=== PATIENT | female | born 1970 | race African-American/Black ===

== ENCOUNTER 2016-11-27 11:26 | Emergency (ER) | payer MEDICAID ==
[~2016-11-27] VITALS: Ht 167.6 cm; Wt 85.7 kg
[~2016-11-27 11:26] MED LIST: KEFLEX500 MG ORAL; OMEPRAZOLE20 M2 ORAL; ONDANSETRON ODT4 MG ORAL; RANITIDINE HCL150 MG ORAL; ZOFRAN ODT4 MG ORAL
[2016-11-27] MEDS ORDERED: Lidocaine 1% MPF 10mg/ml 5ml INJ ONE (12:30)
[2016-11-27] MEDS ORDERED: Bacitracin Oint UD TOPIC ONE (12:30)
[2016-11-27] MEDS ORDERED: PENICILLIN V P500 MG PO (13:33)
[2016-11-27 13:38] VITALS: BP 143/94
--- NOTE | 2016-11-27 15:14 | Emergency Room Report ---
History of Present Illness General Chief Complaint: Skin Rash/Abscess Source: Patient, Medical Record Present Illness HPI The patient is a 46-year-old female presenting for right thumb pain. She states that she noticed redness of the right thumb 3 days prior. Swelling has increased since then. Pain is now 7/10 dull ache and does not radiate. She does admit to occasionally biting the fingernail. She denies any fever or chills. She denies any other symptoms Allergies: Coded Allergies: No Known Allergies (Unverified , 12/22/12) Patient History Past Medical History: see triage record Pertinent Family History: none Reviewed Nursing Documentation: PMH: Agreed, PSxH: Agreed Nursing Documentation-PMH Past Medical History: No History, Except For Hx Gastrointestinal Problems: Yes - Acid Reflux Review of Systems All Other Systems: negative except mentioned in HPI Physical Exam Vital Signs Date Time Temp Pulse Resp B/P Pulse Ox O2 Delivery O2 Flow Rate FiO2 11/27/16 11:36 98.1 85 14 135/93 100 Room Air Sp02 EP Interpretation: reviewed, normal General Appearance: no apparent distress, alert, GCS 15, non-toxic Head: normocephalic, atraumatic Eyes: bilateral eye PERRL, bilateral eye normal inspection ENT: hearing grossly normal, normal pharynx, no angioedema, normal voice Musculoskeletal: normal range of motion, swelling, tender - TTP over the R thumb medial nailfold Neurologic: alert, oriented x3, responsive, motor strength/tone normal, sensory intact, speech normal Psychiatric: judgement/insight normal, memory normal, mood/affect normal, no suicidal/homicidal ideation Skin: other - fluctuance to R medial nailfold of 1st digit. Procedures Laceration/Wound Repair Laceration/Wound Repair : Wound's Depth, Shape: superficial Incision and Drainage Incision and Drainage : Consent: Verbal Site: R thumb Blade Size: 11 I & D Procedure: betadine prep, sterile drapes applied, sterile dressing applied Wound Location: upper extremity Wound's Depth, Shape: superficial Wound Length (cm): 2 Wound Explored: contaminated Irrigated w/ Saline (ccs): 100 Anesthesia: 1% Lidocaine Volume Anesthetic (ccs): 5 Splint Applied?: No Sling Applied?: No Patient Tolerated: Well Complications: None Medical Decision Making PA Attestation Dr. Nesbitt is my supervising physician. Patient management was discussed with my supervising physician Diagnostic Impression: Primary Impression: Paronychia ER Course The patient is a 46-year-old female presenting for right thumb pain Differential diagnosis considered not limited to: Paronychia, felon, cellulitis , among others Physical exam reveals a tender and fluctuant lesion to the right medial nail fold of the first digit. Tender to palpation. Full active range of motion. Betadine prep was used to clean the skin and surrounding area. One percent lidocaine without epinephrine was used for digital block. A #11 blade was used to make an incision at the base of the nail. Once the incision was made, purulent material was expressed with blood. The wound was then cleaned and sterile dressing applied. The patient is discharged home with prescription for Penicillin VK due to possible oral devin ER precautions given Last Vital Signs Date Time Temp Pulse Resp B/P Pulse Ox O2 Delivery O2 Flow Rate FiO2 11/27/16 13:38 94 15 143/94 97 Room Air 11/27/16 13:38 98.2 Status: improved Disposition: HOME, SELF-CARE Condition: Improved Scripts Penicillin V Potassium* (PENVK*) 500 Mg Tablet 500 MG PO Q6H, #28 TAB 0 Refills Prov: DAVIDE HAHN 11/27/16 Patient Instructions: Paronychia Additional Instructions: I discussed my findings with the patient. All questions and concerns have been answered. Treatment and medication compliance have been addressed. I advised the patient that they need to follow up with PMD in 3-5 days. Return to ED if symptoms worsen, new symptoms arise, or if needed for any reason. Patient verbalized understanding of discharge instructions. DAVIDE HAHN Nov 27, 2016 15:14
== END 2016-11-27 13:38 | disposition home or self-care (01) ==
LOC: EMR 12:21
DX: L03.011 Cellulitis of right finger (principal)
CPT/HCPCS: 10060; 99283

== ENCOUNTER 2020-01-10 07:06 | Emergency (ER) | payer MEDICAID ==
[~2020-01-10] VITALS: Ht 167.6 cm; Wt 86.6 kg
[~2020-01-10 07:06] MED LIST changes: +PENICILLIN V P500 MG PO
--- NOTE | 2020-01-10 07:26 | Emergency Room Report ---
History of Present Illness General Chief Complaint: Skin Rash/Abscess Source: Patient Present Illness HPI Patient presents with 2 days of swelling in her right inner thigh. She had several bug bites. The others are not swelling like this 1 and itching. She reports 4/10 pain that is slightly aching. She states it is greater than 10 years since her last tetanus vaccination. She denies exposure to a COVID-19 positive contacts. She also denies COVID-19 symptoms. Labs menstruation December 29 and normal for her. Allergies: Coded Allergies: No Known Allergies (Unverified , 12/22/12) COVID-19 Screening Contact w/high risk pt: No Experienced COVID-19 symptoms?: No COVID-19 Testing performed [employer]: No Patient History Social History: Denies: smoking Social History Narrative Studying accounting Reviewed Nursing Documentation: PMH: Agreed; PSxH: Agreed Nursing Documentation-PMH Past Medical History: No History, Except For Hx Gastrointestinal Problems: Yes - Acid Reflux Review of Systems Constitutional: Reports: see HPI Musculoskeletal: Reports: see HPI Skin: Reports: see HPI Neurological: Denies: numbness Physical Exam Vital Signs Date Time Temp Pulse Resp B/P (MAP) Pulse Ox O2 Delivery O2 Flow Rate FiO2 01/10/20 07:15 97.7 90 16 135/50 (78) 98 Sp02 EP Interpretation: reviewed, normal General Appearance: well appearing, no apparent distress, GCS 15 Head: normocephalic Eyes: bilateral eye normal inspection, bilateral eye PERRL ENT: moist mucus membranes Cardiovascular #1: regular rate, rhythm Gastrointestinal: normal inspection Musculoskeletal: gait/station normal, swelling - Right medial thigh Neurologic: alert Skin: normal color, other - Erythema and induration right medial thigh approximately 4 cm diameter without fluctuance. There are other lesions on the left ankle that are small Medical Decision Making Diagnostic Impression: Primary Impression: Cellulitis Qualified Codes: L03.115 - Cellulitis of right lower limb ER Course Patient presents with bites and one that has spread with redness. Differential includes abscess versus cellulitis. This could also be local reaction to the bite. Bites appearance this appears to be cellulitis. There is no organized abscess at this time and antibiotics should improve effective in treatment. In addition the patient needs to have tetanus. She declines pain medication at this time. Discussed treatment plan with patient. Patient stable for outpatient observation and treatment. Last Vital Signs Date Time Temp Pulse Resp B/P (MAP) Pulse Ox O2 Delivery O2 Flow Rate FiO2 01/10/20 08:05 78 16 128/78 99 Room Air 01/10/20 07:15 97.7 Status: improved Disposition: HOME, SELF-CARE Condition: Improved Scripts Diphenhydramine Hcl* (BENADRYL*) 25 Mg Capsule 25 MG ORAL Q6H PRN for Itching, #10 CAP Prov: Gab Jefferson MD 01/10/20 Hydrocortisone/Aloe (Hydrocortisone/Aloe 1% Cream*) Y Cr 1 APPLIC TOPIC Q6H PRN for Itching, #10 GM Prov: Gab Jefferson MD 01/10/20 Bacitracin (Bacitracin) 28.4 Gm Oint...g. 1 APPLIC TOPIC BID, #20 GM Prov: Gab Jefferson MD 01/10/20 Trimethoprim/Sulfamethoxazole 160/800* (BACTRIM DS TABLET*) 1 Each Tablet 1 TAB ORAL Q12H, #14 TAB 0 Refills Prov: Gab Jefferson MD 01/10/20 Gab Jefferson MD Jan 10, 2020 07:26
[2020-01-10] MEDS ORDERED: Tetanus/Diptheria/Pertussis IM ONE (07:30)
[2020-01-10] MEDS ORDERED: Bacitracin Oint UD TOPIC ONE (07:30)
[2020-01-10] MEDS ORDERED: Bactrim-DS 1 tab ORAL ONE (07:30)
[2020-01-10] MEDS ORDERED: BACITRACIN15 GM TOPIC (07:31)
[2020-01-10] MEDS ORDERED: BENADRYL25 MG ORAL (07:31)
[2020-01-10] MEDS ORDERED: BACTRIM DS TAB1 EAC1 ORAL (07:31)
[2020-01-10] MEDS ORDERED: HYDROCORTISONE-30 GM TOPIC (07:31)
--- NOTE | 2020-01-10 07:40 | NUR ---
ED Nurse Note: Patient presents to ER due to swelling, tenderness with redness on the right posterior thight since last Saturday. Reports no fever, chills or N/V. No red streaks from the affected site noted. Patient awake, alert, oriented x 4. Regular, unlabored breathing noted. No facial grimacing or guarding noted. Denies any allergy to medication.
--- NOTE | 2020-01-10 07:45 | NUR ---
ED Nurse Note: Vaccine information sheet regarding Tdap provided. All questions were answered.
[2020-01-10 08:05] VITALS: BP 128/78
--- NOTE | 2020-01-10 08:07 | NUR ---
Note carlos in EDM - 01/10/20 at 0815 by MIGUEL ER DISCHARGE NOTE: Patient is cleared to be discharged per ERMD, pt is aox4, on room air, with stable vital signs. pt was given dc and prescription instructions, pt was able to verbalize understanding, pt id band and iv site removed without complications. pt is able to ambulate with steady gait. pt took all belongings.
--- NOTE | 2020-01-10 08:07 | NUR ---
ER DISCHARGE NOTE: Patient is cleared to be discharged per ERMD, pt is aox4, on room air, with stable vital signs. pt was given dc and prescription instructions, pt was able to verbalize understanding, pt id band removed Patient ambulated out with steady gait with all her belongings.
== END 2020-01-10 08:07 | disposition home or self-care (01) ==
LOC: EMR 07:30
DX: L03.115 Cellulitis of right lower limb (principal); S70.361A Insect bite (nonvenomous), right thigh, initial encounter; W57.XXXA Bitten or stung by nonvenomous insect and other nonvenomous arthropods, initial encounter; Y92.9 Unspecified place or not applicable
CPT/HCPCS: 90471; 90715; Z7502; 99282